=== PATIENT | female | born 1975 | race African-American/Black ===

== ENCOUNTER 2018-02-23 16:03 | Emergency (ER) | payer BC, OTHER ==
[2018-02-23] MEDS ORDERED: diphenhydrAMINE 50 MG/ML VIAL ONE (16:09)
[2018-02-23] MEDS ORDERED: methylPREDNISolone Sod Succ/PF 125 MG/2 ML VIAL ONE (16:09)
[2018-02-23] MEDS ORDERED: Famotidine/PF 20 mg/2ml Vial ONE (16:09)
== END 2018-02-23 17:55 | disposition home or self-care (01) ==
LOC: SCSER 16:03
DX: T78.40XA Allergy, unspecified, initial encounter (principal); J45.909 Unspecified asthma, uncomplicated; X58.XXXA Exposure to other specified factors, initial encounter
CPT/HCPCS: 96374; 96375; J1200; J2930; S0028